=== PATIENT | female | born 1985 | race Caucasian/White ===

== ENCOUNTER 2016-10-07 19:21 | Inpatient (IN) | payer OTHER ==
[2016-10-07] MEDS ORDERED: SODIUM CHLORIDE 1,000 ML IV STA (19:56)
[2016-10-07] MEDS ORDERED: ONDANSETRON 4 MG/2 ML VIAL IVPUSH ONE (19:56)
[2016-10-07] MEDS ORDERED: morphine CARPU-JECT 4 MG/1 ML DISP.SYRIN IVPUSH ONE (19:56)
[2016-10-07] MEDS ORDERED: morphine CARPU-JECT 2 MG/1 ML DISP.SYRIN ONE ×2 (20:09→20:27)
[2016-10-07] MEDS ORDERED: ONDANSETRON 4 MG/2 ML VIAL ONE (20:10)
[2016-10-07 20:26] LABS: BASOPHIL 0.4 % (0-2.0); EOSINOPHIL 0.1 % (0-4.5); MCH 28.9 pg (25.7-33.7); MCHC 33.5 g/dl (32.0-36.0); MEAN CELL VOLUME 86.3 fl (80-96); MEAN PLT VOLUME 7.6 fl (7.5-11.1); NEUTROPHILS 81.9 % (42.8-82.8); PLATELET COUNT 279 K/MM3 (134-434); RDW 13.7 % (11.6-15.6); WHITE BLOOD COUNT 12.6 K/mm3 (4.0-10.0)
[2016-10-07 20:31] LABS: URINE APPEARANCE CLEAR; URINE BILIRUBIN NEGATIVE (NEGATIVE); URINE BLOOD 2+ (NEGATIVE); URINE COLOR STRAW; URINE GLUCOSE (UA) NEGATIVE (NEGATIVE); URINE KETONE NEGATIVE (NEGATIVE); URINE LEUK ESTERASE NEGATIVE (NEGATIVE); URINE NITRITE NEGATIVE (NEGATIVE); URINE PROTEIN NEGATIVE (NEGATIVE); URINE UROBILINOGEN NEGATIVE mg/dL (0.2-1.0)
[2016-10-07 20:56] LABS: URINE BACTERIA RARE /hpf (NONE SEEN); URINE RBC 10 /hpf (0-3); URINE WBC <1 /hpf (3-5)
--- NOTE | 2016-10-07 22:07 | PDOC ---
History of Present Illness - General Chief Complaint: Pain, Acute Stated Complaint: PAIN Time Seen by Provider: 10/07/16 19:41 History Source: Patient Exam Limitations: Language Barrier - History of Present Illness Travel History: No Initial Comments: 10/07/16 22:03 30yo Female patient with no significant past medical history presents to ED c/o RLQ pain that began around 3 am this morning and remains constant. Patient denies n/v/d, vaginal bleeding, rectal bleeding, dysuria, fever, back pain, diff breathing, or any other complaints at this time. Timing/Duration: reports: constant, getting worse Quality: reports: moderate Abdominal Pain Onset Location: reports: RLQ Pain Radiation: reports: no radiation Activities at Onset: denies: none, exertion, emotional upset, rest, sleep, no specific activity, eating, working, sexual intercourse, other Treatment Prior to Arrive: worse with: analgesics, antacids, cold pack, heat, laxative, enema, other Aggravating Factors: worse with: None, Defecation, Eating, Emotional upset, Exertion, L[place], Movement, Voiding, Change in position Alleviating Factors: worse with: None, Belching, Shallow Breathing, Defecation, Eating, Holding Breath, Passing Gas, Change in Position, Rest, Voiding, Vomiting Past History - Travel Traveled outside of the country in the last 30 days: No Close contact w/someone who was outside of country & ill: No - Past Medical History Allergies/Adverse Reactions: Allergies Allergy/AdvReac Type Severity Reaction Status Date / Time No Known Allergies Allergy Verified 10/07/16 19:49 Home Medications: Ambulatory Orders NK [No Known Home Medication] 10/07/16 Asthma: No Cancer: No Cardiac Disorders: No Diabetes: No HTN: No Seizures: No Thyroid Disease: No - Psycho/Social/Smoking Cessation Hx Anxiety: No Suicidal Ideation: No Smoking History: Never smoked Have you smoked in the past 12 months: No Information on smoking cessation initiated: No Hx Alcohol Use: No Drug/Substance Use Hx: No Substance Use Type: None Hx Substance Use Treatment: No Abd/GI Specific PMHX - Complaint Specific PMHX Colitis: No Diverticulitis: No Gall Bladder Disease: No GERD: No Hepatitis: No Irritable Bowel Synd (IBS): No Pancreatitis: No GI Ulcer Disease: No Review of Systems - Review of Systems Able to Perform ROS?: Yes Is the patient limited Sinhala proficient: No Constitutional: No: Chills, Fever Respiratory: No: Cough, Shortness of Breath, Stridor, Wheezing Cardiac (ROS): No: Chest Pain, Lightheadedness, Palpitations, Syncope ABD/GI: Yes: Abdominal cramping (RLQ). No: Abdominal Distended, Abd. Pain w/ defecation, Constipated, Diarrhea, Difficulty Swallowing, Nausea, Poor Appetite , Poor Fluid Intake, Rectal Bleeding, Vomiting : No: Burning, Dysuria, Flank Pain, Hematuria Musculoskeletal: No: Back Pain All Other Systems: Reviewed and Negative *Physical Exam - Vital Signs Last Vital Signs Temp Pulse Resp BP Pulse Ox 99.4 F 93 H 18 112/78 100 10/07/16 19:47 10/07/16 19:47 10/07/16 19:47 10/07/16 19:47 10/07/16 19:47 - Physical Exam General Appearance: Yes: Nourished, Appropriately Dressed, Apparent Distress, Mild Distress. No: Moderate Distress, Severe Distress Respiratory/Chest: positive: Lungs Clear, Normal Breath Sounds. negative: Chest Tender, Respiratory Distress, Accessory Muscle Use, Labored Respiration, Rapid RR Cardiovascular: positive: Regular Rhythm, Regular Rate Gastrointestinal/Abdominal: positive: Tender (RLQ), Soft, Decreased BS, Guarding , Rebound, Tenderness. negative: Distended Musculoskeletal: positive: Normal Inspection. negative: CVA Tenderness, Decreased Range of Motion, Vertebral Tenderness Extremity: positive: Normal Capillary Refill, Normal Inspection, Normal Range of Motion. negative: Pedal Edema, Swelling, Calf Tenderness, Erythema, Inflammation Integumentary: positive: Normal Color, Dry, Warm Neurologic: positive: foundry molder II-XII NML intact, Fully Oriented, Alert, Normal Mood/ Affect, Normal Response, Motor Strength 5/5 ED Treatment Course - LABORATORY CBC & Chemistry Diagram: 10/07/16 20:00 10/07/16 22:00 - ADDITIONAL ORDERS Additional order review: Laboratory Results 10/07/16 10/07/16 20:15 20:00 Sodium Cancelled Potassium Cancelled Chloride Cancelled Carbon Dioxide Cancelled Anion Gap Cancelled BUN Cancelled Creatinine Cancelled Creat Clearance w eGFR Cancelled Random Glucose Cancelled Calcium Cancelled Total Bilirubin Cancelled AST Cancelled ALT Cancelled Alkaline Phosphatase Cancelled Total Protein Cancelled Albumin Cancelled Total Amylase Cancelled Lipase Cancelled Urine Color Straw Urine Appearance Clear Urine pH 7.0 Urine Protein Negative Urine Glucose (UA) Negative Urine Ketones Negative Urine Blood 2+ H Urine Nitrite Negative Urine Bilirubin Negative Urine Urobilinogen Negative Ur Leukocyte Esterase Negative Urine RBC 10 Urine WBC <1 Ur Epithelial Cells Rare Urine Bacteria Rare Urine HCG, Qual Negative 10/07/16 20:00 RBC 4.22 MCV 86.3 MCHC 33.5 RDW 13.7 MPV 7.6 D Neutrophils % 81.9 D Lymphocytes % 14.7 D Monocytes % 2.9 L Eosinophils % 0.1 D Basophils % 0.4 - RADIOLOGY Radiology Studies Ordered: Category Date Time Status ABDOMEN & PELVIS CT WITH CONTR [CT] Stat CT Scan 10/07/16 19:56 Ordered - Medications Given in the ED: ED Medications Discontinued Medications Generic Name Dose Route Start Last Admin Trade Name Freq PRN Reason Stop Dose Admin Sodium Chloride 1,000 mls @ 1,000 mls/hr 10/07/16 19:56 10/07/16 20:20 Normal Saline - IV 10/07/16 20:55 1,000 mls/hr ASDIR STA Administration Morphine Sulfate 4 mg 10/07/16 19:56 10/07/16 20:29 Morphine Injection - IVPUSH 10/07/16 19:57 4 mg ONCE ONE Administration Ondansetron HCl 4 mg 10/07/16 19:56 10/07/16 20:20 Zofran Injection IVPUSH 10/07/16 19:57 4 mg ONCE ONE Administration *DC/Admit/Observation/Transfer Diagnosis at time of Disposition: Appendicitis Qualifiers: Appendicitis type: acute appendicitis Acute appendicitis type: with localized peritonitis Qualified Code(s): K35.3 - Acute appendicitis with localized peritonitis - Discharge Dispostion Condition at time of disposition: Fair Admit: Yes - Referrals Referrals: Katya Bean MD [Primary Care Provider] -
[2016-10-07 22:58] LABS: ALBUMIN 3.4 g/dl (3.4-5.0); CALCIUM 8.5 mg/dL (8.5-10.1)
[2016-10-07 23:01] LABS: AMYLASE 29 U/L (25-115); ANION GAP 7 (8-16); CO2 25 mmol/L (21-32); CREATININE 0.6 mg/dL (0.55-1.02); GLUCOSE,RANDOM 84 mg/dL (74-106); SGOT/AST 9 U/L (15-37); SGPT/ALT 18 U/L (12-78)
[2016-10-07 23:03] LABS: ALK PHOS 60 U/L (45-117); BILIRUBIN,TOTAL 0.3 mg/dL (0.2-1.0); TOT PROT 6.7 g/dl (6.4-8.2)
[2016-10-08] MEDS ORDERED: ONDANSETRON 4 MG/2 ML VIAL IVPUSH ONE (00:39)
[2016-10-08] MEDS ORDERED: SODIUM CHLORIDE 1,000 ML IV STA (00:39)
[2016-10-08] MEDS ORDERED: morphine CARPU-JECT 4 MG/1 ML DISP.SYRIN IVPUSH ONE (00:39)
[2016-10-08] MEDS ORDERED: ERTAPENEM SODIUM 1 GM in SODIUM CHLORIDE 50 ML IVPB ONE (00:39)
[2016-10-08] MEDS ORDERED: morphine CARPU-JECT 2 MG/1 ML DISP.SYRIN ONE (00:46)
[2016-10-08] MEDS ORDERED: ONDANSETRON 4 MG/2 ML VIAL ONE (00:46)
[2016-10-08] MEDS ORDERED: ERTAPENEM SODIUM 1 GM VIAL ONE (00:46)
--- NOTE | 2016-10-08 01:43 | PDOC ---
*Physical Exam - Vital Signs Last Vital Signs Temp Pulse Resp BP Pulse Ox 99.4 F 93 H 18 112/78 100 10/07/16 19:47 10/07/16 19:47 10/07/16 19:47 10/07/16 19:47 10/07/16 19:47 ED Treatment Course - LABORATORY CBC & Chemistry Diagram: 10/07/16 20:00 10/07/16 22:00 - ADDITIONAL ORDERS Additional order review: Laboratory Results 10/07/16 10/07/16 10/07/16 22:00 21:00 20:15 Sodium 140 Cancelled Potassium 3.9 Cancelled Chloride 108 H Cancelled Carbon Dioxide 25 Cancelled Anion Gap 7 L Cancelled BUN 9 Cancelled Creatinine 0.6 Cancelled Creat Clearance w eGFR > 60 Cancelled Random Glucose 84 Cancelled Calcium 8.5 Cancelled Total Bilirubin 0.3 Cancelled AST 9 L Cancelled ALT 18 Cancelled Alkaline Phosphatase 60 Cancelled Total Protein 6.7 Cancelled Albumin 3.4 Cancelled Total Amylase 29 Lipase 111 Cancelled Urine Color Straw Urine Appearance Clear Urine pH 7.0 Ur Specific [place] 1.010 Urine Protein Negative Urine Glucose (UA) Negative Urine Ketones Negative Urine Blood 2+ H Urine Nitrite Negative Urine Bilirubin Negative Urine Urobilinogen Negative Ur Leukocyte Esterase Negative Urine RBC 10 Urine WBC <1 Ur Epithelial Cells Rare Urine Bacteria Rare Urine HCG, Qual Negative 10/07/16 20:00 Sodium Cancelled Potassium Cancelled Chloride Cancelled Carbon Dioxide Cancelled Anion Gap Cancelled BUN Cancelled Creatinine Cancelled Creat Clearance w eGFR Cancelled Random Glucose Cancelled Calcium Cancelled Total Bilirubin Cancelled AST Cancelled ALT Cancelled Alkaline Phosphatase Cancelled Total Protein Cancelled Albumin Cancelled Total Amylase Cancelled Lipase Cancelled Urine Color Urine Appearance Urine pH Ur Specific [place] Urine Protein Urine Glucose (UA) Urine Ketones Urine Blood Urine Nitrite Urine Bilirubin Urine Urobilinogen Ur Leukocyte Esterase Urine RBC Urine WBC Ur Epithelial Cells Urine Bacteria Urine HCG, Qual 10/07/16 20:00 RBC 4.22 MCV 86.3 MCHC 33.5 RDW 13.7 MPV 7.6 D Neutrophils % 81.9 D Lymphocytes % 14.7 D Monocytes % 2.9 L Eosinophils % 0.1 D Basophils % 0.4 - Medications Given in the ED: ED Medications Discontinued Medications Generic Name Dose Route Start Last Admin Trade Name Freq PRN Reason Stop Dose Admin Sodium Chloride 1,000 mls @ 1,000 mls/hr 10/07/16 19:56 10/07/16 20:20 Normal Saline - IV 10/07/16 20:55 1,000 mls/hr ASDIR STA Administration Ertapenem 1 gm/ Sodium 50 mls @ 50 mls/hr 10/08/16 00:39 10/08/16 01:02 Chloride IVPB 10/08/16 01:38 50 mls/hr ONCE ONE Administration Protocol Sodium Chloride 1,000 mls @ 1,000 mls/hr 10/08/16 00:39 10/08/16 01:02 Normal Saline - IV 10/08/16 01:38 1,000 mls/hr ASDIR STA Administration Morphine Sulfate 4 mg 10/07/16 19:56 10/07/16 20:29 Morphine Injection - IVPUSH 10/07/16 19:57 4 mg ONCE ONE Administration Morphine Sulfate 4 mg 10/08/16 00:39 10/08/16 01:02 Morphine Injection - IVPUSH 10/08/16 00:40 4 mg ONCE ONE Administration Ondansetron HCl 4 mg 10/07/16 19:56 10/07/16 20:20 Zofran Injection IVPUSH 10/07/16 19:57 4 mg ONCE ONE Administration Ondansetron HCl 4 mg 10/08/16 00:39 10/08/16 01:02 Zofran Injection IVPUSH 10/08/16 00:40 4 mg ONCE ONE Administration Medical Decision Making - Medical Decision Making 10/08/16 01:43 agree with care from COORDINATE MEASURING MACHINE OPERATOR Lane *DC/Admit/Observation/Transfer Diagnosis at time of Disposition: Appendicitis - Discharge Dispostion Condition at time of disposition: Stable Admit: Yes
--- NOTE | 2016-10-08 04:03 | HP ---
CHIEF COMPLAINT: RLQ Pain PCP: Dr. Katya Bean HISTORY OF PRESENT ILLNESS: This is a 30 y/o woman with no significant medical history. Who presents to the ED with RLQ pain x 1 day. Patient is Dutch speaking, ED RN (Ad Hoc) translated. Patient reports sharp pain to her RLQ yesterday quill stripper. Patient reports the pain would be sharp then cramping. Patient denies fever, chills, cough, SOB, CP, N/V/D, constipation, dysuria. LMP 09/23/16 ER course was notable for: (1) CTAP- Appendicitis (2) WBC 12.6 (3) Recent Travel: None PAST MEDICAL HISTORY: None PAST SURGICAL HISTORY: C-Sections x2 Social History: Smoking: Never Alcohol: Denies Drugs: Denies Lives with family Family History: Father: Hypertension Allergies No Known Allergies Allergy (Verified 10/07/16 19:49) HOME MEDICATIONS: Home Medications Medication Instructions Recorded NK [No Known Home Medication] 10/07/16 REVIEW OF SYSTEMS CONSTITUTIONAL: Absent: fever, chills, diaphoresis, generalized weakness, malaise, loss of appetite, weight change HEENT: Absent: rhinorrhea, nasal congestion, throat pain, throat swelling, difficulty swallowing, mouth swelling, ear pain, eye pain, visual changes CARDIOVASCULAR: Absent: chest pain, syncope, palpitations, irregular heart rate, lightheadedness , peripheral edema RESPIRATORY: Absent: cough, shortness of breath, dyspnea with exertion, orthopnea, wheezing, stridor, hemoptysis GASTROINTESTINAL: abdominal pain, nausea, vomiting Absent: abdominal distension, diarrhea, constipation, melena, hematochezia GENITOURINARY: Absent: dysuria, frequency, urgency, hesitancy, hematuria, flank pain, genital pain MUSCULOSKELETAL: Absent: myalgia, arthralgia, joint swelling, back pain, neck pain SKIN: Absent: rash, itching, pallor HEMATOLOGIC/IMMUNOLOGIC: Absent: easy bleeding, easy bruising, lymphadenopathy, frequent infections ENDOCRINE: Absent: unexplained weight gain, unexplained weight loss, heat intolerance, cold intolerance NEUROLOGIC: Absent: headache, focal weakness or paresthesias, dizziness, unsteady gait, seizure, mental status changes, bladder or bowel incontinence PSYCHIATRIC: Absent: anxiety, depression, suicidal or homicidal ideation, hallucinations. PHYSICAL EXAMINATION Vital Signs - 24 hr 10/07/16 19:47 Temperature 99.4 F Pulse Rate 93 H Respiratory 18 Rate Blood Pressure 112/78 O2 Sat by Pulse 100 Oximetry (%) GENERAL: Awake, alert, and fully oriented, in no acute distress. HEAD: Normal with no signs of trauma. EYES: Pupils equal, round and reactive to light, extraocular movements intact, sclera anicteric, conjunctiva clear. No lid lag. EARS, NOSE, THROAT: Ears normal, nares patent, oropharynx clear without exudates. Moist mucous membranes. NECK: Normal range of motion, supple without lymphadenopathy, JVD, or masses. LUNGS: Breath sounds equal, clear to auscultation bilaterally. No wheezes, and no crackles. No accessory muscle use. HEART: Regular rate and rhythm, normal S1 and S2 without murmur, rub or gallop. ABDOMEN: Soft, RLQ, RUQ, mid umbilical tenderness, +rebound. Not distended, hypoactive bowel sounds, no guarding, no masses. No hepatomegaly or splenomegaly. MUSCULOSKELETAL: Normal range of motion at all joints. No bony deformities or tenderness. No CVA tenderness. UPPER EXTREMITIES: 2+ pulses, warm, well-perfused. No cyanosis. No clubbing. No peripheral edema. LOWER EXTREMITIES: 2+ pulses, warm, well-perfused. No calf tenderness. No peripheral edema. NEUROLOGICAL: Cranial nerves II-XII intact. Normal speech. Normal gait. PSYCHIATRIC: Cooperative. Good eye contact. Appropriate mood and affect. SKIN: Warm, dry, normal turgor, no rashes or lesions noted, normal capillary refill. Laboratory Results - last 24 hr 10/07/16 10/07/16 10/07/16 20:00 20:00 20:15 WBC 12.6 H D RBC 4.22 Hgb 12.2 Hct 36.5 MCV 86.3 MCH 28.9 MCHC 33.5 RDW 13.7 Plt Count 279 D MPV 7.6 D Neutrophils % 81.9 D Lymphocytes % 14.7 D Monocytes % 2.9 L Eosinophils % 0.1 D Basophils % 0.4 Sodium Cancelled Potassium Cancelled Chloride Cancelled Carbon Dioxide Cancelled Anion Gap Cancelled BUN Cancelled Creatinine Cancelled Creat Clearance w eGFR Cancelled Random Glucose Cancelled Calcium Cancelled Total Bilirubin Cancelled AST Cancelled ALT Cancelled Alkaline Phosphatase Cancelled Total Protein Cancelled Albumin Cancelled Total Amylase Cancelled Lipase Cancelled Urine Color Straw Urine Appearance Clear Urine pH 7.0 Ur Specific [place] 1.010 Urine Protein Negative Urine Glucose (UA) Negative Urine Ketones Negative Urine Blood 2+ H Urine Nitrite Negative Urine Bilirubin Negative Urine Urobilinogen Negative Ur Leukocyte Esterase Negative Urine RBC 10 Urine WBC <1 Ur Epithelial Cells Rare Urine Bacteria Rare Urine HCG, Qual Negative 10/07/16 10/07/16 21:00 22:00 WBC RBC Hgb Hct MCV MCH MCHC RDW Plt Count MPV Neutrophils % Lymphocytes % Monocytes % Eosinophils % Basophils % Sodium Cancelled 140 Potassium Cancelled 3.9 Chloride Cancelled 108 H Carbon Dioxide Cancelled 25 Anion Gap Cancelled 7 L BUN Cancelled 9 Creatinine Cancelled 0.6 Creat Clearance w eGFR Cancelled > 60 Random Glucose Cancelled 84 Calcium Cancelled 8.5 Total Bilirubin Cancelled 0.3 AST Cancelled 9 L ALT Cancelled 18 Alkaline Phosphatase Cancelled 60 Total Protein Cancelled 6.7 Albumin Cancelled 3.4 Total Amylase 29 Lipase Cancelled 111 Urine Color Urine Appearance Urine pH Ur Specific [place] Urine Protein Urine Glucose (UA) Urine Ketones Urine Blood Urine Nitrite Urine Bilirubin Urine Urobilinogen Ur Leukocyte Esterase Urine RBC Urine WBC Ur Epithelial Cells Urine Bacteria Urine HCG, Qual ASSESSMENT/PLAN: This is a 30 y/o woman with no significant medical history. Admitted for Acute Appendicitis for further evaluation of their emergent condition. Problem List - Problem (1) Appendicitis Assessment/Plan: - Admit to M/S - CTAP- acute Appendicitis - +Leukocytosis, patient is afebrile - Given Imepenem, NS bolus, Morphine, Zofran in ED - Appreciate Surgical Consult - Continue IVF - Pain Mgmt- Morphine prn - Zofran prn - Pre-op labs- pending - EKG- pending - Chest Xray-pending - Repeat CBC tomorrow Code(s): K37 - UNSPECIFIED APPENDICITIS Qualifiers: Appendicitis type: acute appendicitis Acute appendicitis type: with localized peritonitis Qualified Code(s): K35.3 - Acute appendicitis with localized peritonitis (2) Abdominal pain Assessment/Plan: - See Above Code(s): R10.9 - UNSPECIFIED ABDOMINAL PAIN (3) DVT prophylaxis Assessment/Plan: - OOB - SCDS Code(s): [id number] - Visit type - Emergency Visit Emergency Visit: Yes ED Registration Date: 10/08/16 Care time: The patient presented to the Emergency Department on the above date and was hospitalized for further evaluation of their emergent condition. - New Patient This patient is new to me today: Yes Date on this admission: 10/08/16 - Critical Care Critical Care patient: No
[2016-10-08] MEDS ORDERED: ONDANSETRON 4 MG/2 ML VIAL IVPUSH PRN ×2 (04:07→12:56)
[2016-10-08] MEDS ORDERED: morphine CARPU-JECT 2 MG/1 ML DISP.SYRIN IVPUSH PRN ×2 (04:08→12:56)
[2016-10-08] MEDS: DEXTROSE 5%-0.45% SALINE 1,000 ML IV SCH ×4 (04:59→20:08)
[2016-10-08 05:28] LABS: INR 1.17 (0.82-1.09); PROTHROMBIN TIME (PATIENT) 12.9 SEC (9.98-11.88)
[2016-10-08 06:55] VITALS: BMI 25.3
[2016-10-08] MEDS ORDERED: BUPIVACAINE HCL/PF 0.5% (5MG/ML) 10 ML VIAL ONE (10:49)
--- NOTE | 2016-10-08 10:52 | EKG ---
Test Reason : Blood Pressure : / mmHG Vent. Rate : 072 BPM Atrial Rate : 072 BPM P-R Int : 146 ms QRS Dur : 082 ms QT Int : 370 ms P-R-T Axes : 019 055 038 degrees QTc Int : 405 ms NORMAL SINUS RHYTHM NORMAL ECG NO PREVIOUS ECGS AVAILABLE Confirmed by AVILA MILLER MD ([id number]) on 10/08/2016 10:51:50 AM Referred By: Confirmed By:AVILA MILLER MD
[2016-10-08] MEDS ORDERED: ceFAZolin SODIUM 1 GM VIAL IVPB ONE (11:45)
[2016-10-08] MEDS ORDERED: BUPIVACAINE HCL/PF 0.5% (5MG/ML) 10 ML VIAL IJ ONE (12:08)
--- NOTE | 2016-10-08 12:34 | OP ---
<Francisca Ca - Last Filed: 10/08/16 12:32> Operative Note - Note: Operative Date: 10/08/16 Pre-Operative Diagnosis: acute appendicitis Operation: laparoscopic appendectomy Post-Operative Diagnosis: Same as Pre-op Surgeon: Zi Sarkar Wet Finisher: Francisca Ca Anesthesiologist/METER CALIBRATOR: Zi Lopez Anesthesia: General Specimens Removed: appendix Estimated Blood Loss (mls): 20 Drains, Volume Out (mls): 150 Fluid Volume Replaced (mls): 900 <Zi Sarkar - Last Filed: 10/08/16 13:24> Operative Note - Note: Post-Operative Diagnosis: Other (Perforated appendicitis)
--- NOTE | 2016-10-08 12:35 | SURG ---
Surgery Culinary Specialist Note Culinary Specialist: Francisca Ca PA-C Date of Service: 10/08/16 Diagnosis: acute appendicitis Procedure: laparoscopic appendectomy I was present for the entirety of the operative procedure. For further detail, please refer to operative report. Visit type - Case Type Case Type: Scheduled Admission - Emergency Emergency Visit: Yes ED Registration Date: 10/08/16 Care time: The patient presented to the Emergency Department on the above date and was hospitalized for further evaluation of their emergent condition. - New patient This patient is new to me today: Yes Date on this admission: 10/08/16 - Critical Care Critical Care patient: No
[2016-10-08] MEDS ORDERED: oxyCODONE HCL 5 MG TABLET PO PRN ×2 (12:36→12:38)
[2016-10-08] MEDS ORDERED: LACTATED RINGERS SOLUTION 1,000 ML IV SCH (12:45)
--- NOTE | 2016-10-08 13:19 | CONSULT ---
Consult Consult Specialty:: Surgery Reason for Consultation:: Acute appendicitis - History of Present Illness Chief Complaint: Abdominal pain History of Present Illness: 30 female presents for abdominal pain x 1-2 days Denies fevers No vomiting + CT evidence of acute appendicitis - History Source History Provided By: Patient - Past Medical History ...LMP: 09/15/16 ...: No - Alcohol/Substance Use Hx Alcohol Use: No - Smoking History Smoking history: Never smoked Have you smoked in the past 12 months: No Home Medications - Allergies Allergies/Adverse Reactions: Allergies Allergy/AdvReac Type Severity Reaction Status Date / Time No Known Allergies Allergy Verified 10/07/16 19:49 - Home Medications Home Medications: Ambulatory Orders NK [No Known Home Medication] 10/07/16 Family Disease History - Family Disease History Family History: Denies Review of Systems - Review of Systems Constitutional: denies: Chills, Fever Neck: reports: No Symptoms Cardiovascular: denies: Chest Pain Respiratory: denies: Cough Gastrointestinal: reports: Abdominal Pain. denies: Diarrhea, Vomiting Neurological: denies: Change in LOC Pain Intensity: 5 Physical Exam Vital Signs: Vital Signs Temperature 98.2 F 10/08/16 09:07 Pulse Rate 66 10/08/16 09:07 Respiratory Rate 18 10/08/16 09:07 Blood Pressure 99/63 10/08/16 09:07 O2 Sat by Pulse Oximetry (%) 96 10/08/16 09:00 Constitutional: Yes: No Distress HENT: Yes: WNL Neck: Yes: Supple Cardiovascular: Yes: Regular Rate and Rhythm Respiratory: Yes: CTA Bilaterally Gastrointestinal: Yes: Soft, Tenderness Extremities: Yes: WNL Neurological: Yes: Alert, Oriented Labs: CBC, BMP 10/07/16 20:00 10/07/16 22:00 Imaging - Results Cat Scan: Report Reviewed, Image Reviewed Problem List - Problems (1) Appendicitis Code(s): K37 - UNSPECIFIED APPENDICITIS Qualifiers: Appendicitis type: acute appendicitis Acute appendicitis type: with localized peritonitis Qualified Code(s): K35.3 - Acute appendicitis with localized peritonitis Assessment/Plan 30 female with acute appendicitis NPO Antibiotics Laparoscopic possible open appendectomy
--- NOTE | 2016-10-08 14:54 | SPEC ---
DATE OF OPERATION: 10/08/2016 SURGEON: Andrei Sarkar MD GARNETT MACHINE OPERATOR: LA Marrero PREOPERATIVE DIAGNOSIS: Acute appendicitis. POSTOPERATIVE DIAGNOSIS: Perforated acute appendicitis. PROCEDURE: Laparoscopic appendectomy. SPECIMEN: Appendix. ESTIMATED BLOOD LOSS: 5 mL. DRAINS: None. ANESTHESIA: GET. REASON FOR PROCEDURE: This 30-year-old female presented to the hospital with abdominal pain. She was noted to have evidence of acute appendicitis on CT imaging, and elevated white count. Because of this, she was consented for laparoscopic, possible open, appendectomy. RISKS AND BENEFITS: The risks and benefits were explained for a laparoscopic, possible open appendectomy. These included bleeding, infection, hernia, HI, DVT, PE, injury to surrounding structures including the liver, colon, bowel, bladder, ureter, vessel injury, nerve injury, abscess formation, staple line leak, staple line dehiscence as some of the possible complications. The patient understood and signed informed consent. DESCRIPTION OF PROCEDURE: The patient was placed supine on the operating room table. The patient underwent general endotracheal intubation. A Rivera catheter was inserted by the nursing staff. The abdomen was prepped and draped in the usual sterile fashion. A timeout was performed. A periumbilical incision was made and a 5-mm optical trocar was inserted under direct visualization with the laparoscope. Pneumoperitoneum was then established. Subsequently, a 5-mm trocar was placed in the suprapubic area and a 12-mm trocar placed in the left lower quadrant. The patient was placed in Trendelenburg right side up position. After meticulous dissection, the appendix was identified. The appendix was freed from its surrounding structures and the appendix was retracted to the anterior abdominal wall. The base of the appendix was identified. A window was created within the mesentery near the base of the appendix. The appendix at its base was stapled using a laparoscopic Endo-HANNAH stapler with a white load. The mesoappendix was then transected using a laparoscopic Endo-HANNAH stapler with a white load. The appendix was placed in an EndoCatch bag. Inspection of both staple lines was identified. The staple line at the base of the appendix was noted to be fully intact. Hemostasis was noted at the staple line of the mesoappendix. Copious irrigation and suction was performed. The appendix was removed from the abdominal cavity and sent off the operative field as specimen. The patient was then placed in left side up position. The 12-mm trocar was removed. The fascia at this site was closed using a 0 Vicryl suture with a Ramirez-Sofía device. The patient was then placed supine. Pneumoperitoneum was desufflated and all further trocars were removed. All incision sites were irrigated and Marcaine was injected at all incision sites. The fascial suture was secured. All incision sites were closed using 4-0 Biosyn. Sterile dressings were applied. The patient tolerated the procedure well. The Rivera catheter was removed and the patient was transferred to the recovery room in stable condition. Please note that there was a perforation and pus noted in the right paracolic gutter and pelvis, which was suctioned. Because of this, she was continued on antibiotics for 48 hours. ANDREI SARKAR M.D. TRAVIS/[id number]
[2016-10-08] MEDS: ACETAMINOPHEN 325 MG TABLET (FP) PO SCH ×3 (16:22→23:23)
[2016-10-08] MEDS: METRONIDAZOLE 500 MG PREMIXED 100 ML IVPB SCH (18:17)
[2016-10-08] MEDS: HEPARIN NA (PORCINE) 5,000 UNITS/ML 1ML VIAL SQ SCH (21:03)
[2016-10-09] MEDS: METRONIDAZOLE 500 MG PREMIXED 100 ML IVPB SCH ×2 (01:15→09:30)
[2016-10-09] MEDS: ACETAMINOPHEN 325 MG TABLET (FP) PO SCH ×2 (06:08→13:12)
[2016-10-09] MEDS: DEXTROSE 5%-0.45% SALINE 1,000 ML IV SCH (06:09)
[2016-10-09 07:27] LABS: BASOPHIL 0.6 % (0-2.0); MCH 28.8 pg (25.7-33.7); MCHC 33.3 g/dl (32.0-36.0); MEAN CELL VOLUME 86.5 fl (80-96); MEAN PLT VOLUME 7.3 fl (7.5-11.1); NEUTROPHILS 75.9 % (42.8-82.8); PLATELET COUNT 257 K/MM3 (134-434); RDW 13.5 % (11.6-15.6); WHITE BLOOD COUNT 10.3 K/mm3 (4.0-10.0)
[2016-10-09 07:52] LABS: ALK PHOS 55 U/L (45-117); ANION GAP 7 (8-16); BILIRUBIN,TOTAL 0.2 mg/dL (0.2-1.0); CALCIUM 8.4 mg/dL (8.5-10.1); CO2 26 mmol/L (21-32); CREATININE 0.6 mg/dL (0.55-1.02); GLUCOSE,RANDOM 133 mg/dL (74-106); SGOT/AST 10 U/L (15-37); SGPT/ALT 18 U/L (12-78); TOT PROT 6.4 g/dl (6.4-8.2)
[2016-10-09] MEDS ORDERED: LEVOFLOXACIN 500 MG IVPB 100 ML IVPB ONE (08:00)
[2016-10-09] MEDS: HEPARIN NA (PORCINE) 5,000 UNITS/ML 1ML VIAL SQ SCH ×2 (09:30→09:48)
--- NOTE | 2016-10-09 12:49 | PATH ---
Surgical Pathology Report Patient Name: JANESSA SALAS Med. Rec. #: [id number] /Age/Gender: 1985 (Age: 30) / F Account: [id number] Location: [facility] MED/SURG Taken: 10/08/2016 Received: 10/08/2016 Reported: 10/09/2016 Physicians: Zi Sarkar M.D. Specimen(s) Received APPENDIX Clinical History Appendicitis Final Diagnosis APPENDIX, APPENDECTOMY: ACUTE APPENDICITIS AND PERIAPPENDICITIS. Electronically Signed Agustin Walker M.D. Gross Description Received in formalin labelled "appendix" is her diameter appendix with attached periappendiceal fat. The appendiceal serosa is partially covered by an exudate. Cut surface reveals a 0.2 0.3 cm thick wall, and lorenzo mucosa. No fecalith or point of rupture is identified. Second Chef sections are submitted one cassette. [facility]/10/08/2016 [facility]/10/08/2016
--- NOTE | 2016-10-09 13:57 | DS ---
Physical Exam: SUBJECTIVE: Patient seen and examined OBJECTIVE: Vital Signs Period Temp Pulse Resp BP Sys/Ryder Pulse Ox Last 24 Hr 97.6 F-99 F 56-73 18-18 98-120/61-73 96-96 PHYSICAL EXAM GENERAL: The patient is awake, alert, and fully oriented, in no acute distress. HEAD: Normal with no signs of trauma. EYES: PERRL, extraocular movements intact, sclera anicteric, conjunctiva clear. ENT: Ears normal, nares patent, oropharynx clear without exudates, moist mucous membranes. NECK: Trachea midline, full range of motion, supple. LUNGS: Breath sounds equal, clear to auscultation bilaterally, no wheezes, no crackles, no accessory muscle use. HEART: Regular rate and rhythm, S1, S2 without murmur, rub or gallop. ABDOMEN: Soft, nontender, nondistended, normoactive bowel sounds, no guarding, no rebound, no hepatosplenomegaly, no masses. EXTREMITIES: 2+ pulses, warm, well-perfused, no edema. NEUROLOGICAL: Cranial nerves II through XII grossly intact. Normal speech, gait not observed. PSYCH: Normal mood, normal affect. SKIN: Warm, dry, normal turgor, no rashes or lesions noted. LABS Laboratory Results - last 24 hr 10/09/16 10/09/16 06:00 06:00 WBC 10.3 H RBC 3.83 Hgb 11.0 Hct 33.1 MCV 86.5 MCH 28.8 MCHC 33.3 RDW 13.5 Plt Count 257 MPV 7.3 L Neutrophils % 75.9 Lymphocytes % 17.8 D Monocytes % 5.7 D Eosinophils % 0.0 D Basophils % 0.6 Sodium 142 Potassium 3.9 Chloride 109 H Carbon Dioxide 26 Anion Gap 7 L BUN 8 Creatinine 0.6 Creat Clearance w eGFR > 60 Random Glucose 133 H D Calcium 8.4 L Total Bilirubin 0.2 D AST 10 L ALT 18 Alkaline Phosphatase 55 Total Protein 6.4 Albumin 3.0 L HOSPITAL COURSE: Date of Admission:10/08/16 Date of Discharge: 10/09/16 Minutes to complete discharge: 35 Discharge Summary Reason For Visit: APPENDICITIS Current Active Problems Abdominal pain (Acute) Appendicitis (Acute) DVT prophylaxis (Acute) Condition: Improved - Instructions Diet, Activity, Other Instructions: You should follow up with Dr. Sarkar, your surgeon, within 1-2 weeks of your discharge. His contact information is enclosed, call his office on Wednesday to make an appointment. Antibiotics have been sent to your pharmacy. Take these medications as directed. Return to the emergency department for any new or worsening symptoms. Referrals: Zi Sarkar MD [Staff Physician] - 1 Week Katya Bean MD [Primary Care Provider] - Disposition: HOME - Home Medications Comprehensive Discharge Medication List: Ambulatory Orders Docusate Sodium [Colace -] 100 mg PO TID #90 capsule 10/08/16 Levofloxacin [Levaquin -] 500 mg PO DAILY #10 tablet 10/08/16 Metronidazole [Flagyl -] 500 mg PO TID #30 tablet 10/08/16 Oxycodone HCl/Acetaminophen [Percocet 5-325 mg Tablet] 1 - 2 tab PO Q6H #28 tab MDD 4 10/08/16 This patient is new to me today: Yes Date on this admission: 10/09/16 Emergency Visit: Yes ED Registration Date: 10/08/16 Care time: The patient presented to the Emergency Department on the above date and was hospitalized for further evaluation of their emergent condition. Critical Care patient: No - Discharge Referral Referred to [facility] Med P.C.: No
[2016-10-09 14:59] VITALS: BP 127/85; PULSE 71; TEMP 99.1
--- NOTE | 2016-10-12 19:06 | EKG ---
Test Reason : Blood Pressure : / mmHG Vent. Rate : 063 BPM Atrial Rate : 063 BPM P-R Int : 158 ms QRS Dur : 082 ms QT Int : 400 ms P-R-T Axes : 030 039 048 degrees QTc Int : 409 ms NORMAL SINUS RHYTHM NORMAL ECG WHEN COMPARED WITH ECG OF 08-OCT-2016 03:07, NO SIGNIFICANT CHANGE WAS FOUND Confirmed by ABIMBOLA MOSELEY MD ([id number]) on 10/12/2016 7:05:51 PM Referred By: Confirmed By:ABIMBOLA MOSELEY MD
== END 2016-10-09 15:12 | disposition home or self-care (01) | DRG 225 ==
LOC: JER 19:21 → JERBED 10-08 04:52 → UNDOADMIN 10-08 05:17 → J7W 10-08 06:19 → JERBED 10-08 06:19
PROVIDERS: ADMIT Internal Medicine; ATTEND Nurse Practitioner Acute Care
PROC: 0DTJ4ZZ Resection of Appendix, Percutaneous Endoscopic Approach (ICD-10-PCS; principal; 2016-10-08 11:00)
DX: K35.3 Acute appendicitis with localized peritonitis (principal); R10.31 Right lower quadrant pain
CPT/HCPCS: 36415; 71010-TC; 74177-TC; 80048; 80053; 81003; 81015; 82150; 83690; 84703; 85025; 85610; 86850; 86900; 86901; 88304-TC; 93005; 93010; 94760; 99285-25; J1644